=== PATIENT | male | born 1990 | race Caucasian/White ===

== ENCOUNTER 2016-08-02 22:48 | Emergency (ER) | payer SELFPAY ==
[2016-08-03 00:26] VITALS: BP 135/80
[2016-08-03] MEDS ORDERED: ASPIRIN 81 MG TABLET, CHEWABLE PO ONE (00:31)
[2016-08-03 01:50] LABS: ABSOLUTE BASOPHILS # (AUTO) 0.1 10^3/uL (0.0-0.2); ABSOLUTE EOSINOPHILS # (AUTO) 0.4 10^3/uL (0.0-0.6); ABSOLUTE NEUT (AUTO) 7.7 10^3/uL (1.7-8.2); EOSINOPHILS % (AUTO) 2.8 % (0-6); HEMATOCRIT 48.8 % (37.9-51.0); HEMOGLOBIN 16.7 g/dL (13.5-17.0); HGB HCT DIFFERENCE 1.3; LYMPHOCYTES % (AUTO) 30.5 % (13-45); MEAN CORPUSCULAR HEMOGLOBIN 29.8 pg (27.0-33.4); MEAN CORPUSCULAR HGB CONC 34.1 g/dL (32.0-36.0); MEAN CORPUSCULAR VOLUME 87 fl (80-97); MONOCYTES % (AUTO) 7.3 % (3-13); RED CELL DISTRIBUTION WIDTH 13.6 % (11.5-14.0); SEGMENTED NEUTROPHILS % (AUTO) 58.4 % (42-78); WHITE BLOOD COUNT 13.1 10^3/uL (4.0-10.5)
[2016-08-03 02:00] LABS: ALANINE AMINOTRANSFERASE 40 U/L (21-72); ALBUMIN 4.8 g/dL (3.5-5.0); ALKALINE PHOSPHATASE 71 U/L (38-126); ANION GAP 13 (5-19); ASPARTATE AMINO TRANSFERASE 26 U/L (17-59); BILIRUBIN,TOTAL 0.6 mg/dL (0.2-1.3); BLOOD UREA NITROGEN 16 mg/dL (7-20); CALCIUM 10.2 mg/dL (8.4-10.2); CARBON DIOXIDE 24 mmol/L (22-30); CHLORIDE 106 mmol/L (98-107); CREATINE KINASE 195 U/L (55-170); CREATININE RESULT 0.85 mg/dL (0.52-1.25); GLUCOSE 89 mg/dL (75-110); POTASSIUM 4.3 mmol/L (3.6-5.0); SODIUM 143.4 mmol/L (137-145); TOTAL PROTEIN 7.6 g/dL (6.3-8.2)
[2016-08-03 02:10] LABS: CREATINE KINASE MB 0.52 ng/mL (<4.55)
[2016-08-03 02:12] LABS: TROPONIN I < 0.012 ng/mL
--- NOTE | 2016-08-03 03:30 | ER Document Report ---
ED Cardiac - General Chief Complaint: Chest Pain Stated Complaint: CHEST PAIN Notes: The patient is a 26-year-old male who presents with 5 months of left-sided chest pain and left arm tingling that occurs intermittently throughout the day. He has not seen a doctor for this. Pain does not change with exertion. Denies shortness of breath, fevers, rash, back pain, leg swelling, cough or abdominal pain. TRAVEL OUTSIDE OF THE [place] IN LAST 30 DAYS: No - Related Data Allergies/Adverse Reactions: No Known Allergies Allergy (Verified 08/22/12 09:30) Past Medical History - General Information source: Patient - Social History Smoking Status: Current Every Day Smoker Frequency of alcohol use: None Drug Abuse: None Family History: Reviewed & Not Pertinent Pulmonary Medical History: Reports: Hx Pneumonia Neurological Medical History: Reports: Hx Seizures Renal/ Medical History: Reports: Hx Kidney Stones. Denies: Hx Peritoneal Dialysis Musculoskeltal Medical History: Reports Hx Musculoskeletal Trauma Psychiatric Medical History: Reports: Hx Attention Deficit Hyperactivity Disorder, Hx Bipolar Disorder Past Surgical History: Reports: Hx Orthopedic Surgery - LEFT KNEE - Immunizations Immunizations up to date: No Hx Diphtheria, Pertussis, Tetanus Vaccination: Yes Review of Systems - Review of Systems Notes: REVIEW OF SYSTEMS: CONSTITUTIONAL: -fevers, -chills EENT: -eye pain, -difficulty swallowing, -nasal congestion CARDIOVASCULAR: +chest pain, -syncope. RESPIRATORY: -cough, -SOB GASTROINTESTINAL: -abdominal pain, -nausea, -vomiting, -diarrhea GENITOURINARY: -dysuria, -hematuria MUSCULOSKELETAL: -back pain, -neck pain SKIN: -rash or skin lesions. HEMATOLOGIC: -easy bruising or bleeding. LYMPHATIC: -swollen, enlarged glands. NEUROLOGICAL: -altered mental status or loss of consciousness, -headache, - neurologic symptoms PSYCHIATRIC: -anxiety, -depression. ALL OTHER SYSTEMS REVIEWED AND NEGATIVE. Physical Exam - Vital signs Vitals: Temp Pulse Resp BP Pulse Ox 97.7 F 90 16 135/80 H 99 08/03/16 00:24 08/03/16 00:24 08/03/16 00:24 08/03/16 00:24 08/03/16 00:24 - Notes Notes: PHYSICAL EXAMINATION: GENERAL: Well-appearing, well-nourished and in no acute distress. HEAD: Atraumatic, normocephalic. EYES: Pupils equal round and reactive to light, extraocular movements intact, sclera anicteric, conjunctiva are normal. ENT: nares patent, oropharynx clear without exudates. Moist mucous membranes. NECK: Normal range of motion, supple without lymphadenopathy LUNGS: Breath sounds clear to auscultation bilaterally and equal. No wheezes rales or rhonchi. HEART: Regular rate and rhythm without murmurs ABDOMEN: Soft, nontender, normoactive bowel sounds. No guarding, no rebound. No masses appreciated. EXTREMITIES: Normal range of motion, no pitting or edema. No cyanosis. NEUROLOGICAL: Cranial nerves grossly intact. Normal speech, normal gait. Normal sensory, motor, and reflex exams. PSYCH: Normal mood, normal affect. SKIN: Warm, Dry, normal turgor, no rashes or lesions noted. Course - Re-evaluation Re-evalutation: Pt's HEART score is 1. PERC negative. Symptoms atypical for aortic dissection. Will discharge home with follow-up at primary care physician in [place]. Given strict return precautions and he understands. - Vital Signs Vital signs: Temp Pulse Resp BP Pulse Ox 97.7 F 90 16 135/80 H 99 08/03/16 00:24 08/03/16 00:24 08/03/16 00:24 08/03/16 00:24 08/03/16 00:24 - Laboratory Result Diagrams: 08/03/16 01:25 08/03/16 01:25 Laboratory results interpreted by me: 08/03/16 08/03/16 01:25 01:25 WBC 13.1 H RBC 5.60 H Creatine Kinase 195 H Discharge - Discharge Clinical Impression: Chest pain Qualifiers: Chest pain type: unspecified Qualified Code(s): R07.9 - Chest pain, unspecified Condition: Good Disposition: HOME, SELF-CARE Additional Instructions: CHEST PAIN OF UNCLEAR CAUSE: The exact cause of your chest pain isn't clear. Fortunately, there is no evidence of a dangerous medical condition. Further testing may be required to find the source of the pain. Most often, we find that this pain is coming from the chest wall -- the muscles or rib joints in the chest. But chest pain can come from the lung and lung lining, the esophagus, the heart valves or heart lining, and even the stomach or gallbladder. Rest. Eat lightly until the pain is gone. We may prescribe medicine for pain and inflammation. You should call the physician immediately if the pain radiates to the shoulder, jaw or arms; if you start to run a fever or develop a cough; or if you develop shortness of breath, or other new or alarming symptoms. NORMAL EXAM AND WORKUP: At this time, your examination and workup show no significant abnormality. No significant abnormal physical findings were noted. All laboratory, EKG, and imaging (x-ray, CT scans, ultrasound) studies that were ordered show no significant abnormality. Although your examination and all studies that were ordered showed no significant abnormal finding, there are no examinations and no studies that are 100% accurate. There is always the possibility that some abnormality could exist and not be detected with physical examination or within the limits and capabilities of laboratory and other studies. You should return or follow up as you were instructed on your visit today for further evaluation if your symptoms do not resolve. CHEST WALL PAIN: Your chest pain may be coming from the chest wall. This is often caused by straining the muscles or joints in the chest during physical activity, direct trauma, coughing, or vigorous vomiting. Persons with arthritis are especially prone to this type of pain, due to inflammation of the cartilage joints near the breast bone. Occasionally, no cause can be found. Rest from strenuous physical activity. This kind of chest pain is usually made worse by movement of the chest. Depending on the symptoms, we may prescribe medicine for pain, muscle relaxation, and antiinflammatory effects. If the pain is new, and seems to be due to muscle strain, cold packs can help. Otherwise, apply gentle warmth to the painful area for 15 minutes every hour or two. You should call contact the doctor immediately if things change. Further evaluation is needed if you develop a fever or cough, if the nature of the pain changes, or if you become short of breath. ANGINA EPISODE: Your physician has diagnosed the pain you experienced as an episode of angina. Angina occurs when a portion of the heart muscle temporarily lacks oxygen. It does not cause any permanent heart damage, but serves as a warning. Hospitalization is not necessary now. Evaluation of your cardiac condition , and medical therapy for angina will be necessary. It's important you be sure to keep all appointments and take medication exactly as prescribed. Angina is usually treated with a type of "nitrate" medication. This is available as ointment, pills, or sublingual (under the tongue) tablets. Depending on your clinical situation, other medications may be added to help control angina. These may include beta blockers or calcium blockers. If episodes of angina are occurring with increased frequency, or if chest pain lasts longer than 15 minutes or does not respond to nitroglycerin, you must seek emergency medical care immediately. ACID REFLUX DISEASE (GERD): Gastro-Esophageal Reflux Disease (GERD) is caused by stomach acid refluxing back up into the esophagus. The valve at the end of the esophagus may be weak. This is common in persons with a hiatal hernia. GERD symptoms can include indigestion, chest pain, heartburn, or food "sticking." Certain foods, alcohol, and aspirin can make GERD worse. Treatment depends on the severity. Usually, antacids or acid-suppressing medicines are used. When the esophagus is acutely inflamed, the physician will often prescribe membrane-protective drugs such as Carafate. Some patients benefit from medication such as Reglan that tightens the valve at the top of the stomach. Avoid those foods that bring on your symptoms. For many people, these foods are coffee, chocolate, onions, garlic, and carbonated drinks. Don't use alcohol, aspirin, caffeine, or tobacco. Don't eat late at night -- within 4 hours of bedtime. Don't over-eat. If necessary, elevate the head of your bed about 4 inches so that stomach acid will not roll up into your esophagus. Call the doctor if you develop severe chest pain, inability to swallow fluids, fever, or worsening symptoms. FOLLOW-UP CARE: If you have been referred to a physician for follow-up care, call the physician s office for an appointment as you were instructed or within the next two days. If you experience worsening or a significant change in your symptoms, notify the physician immediately or return to the Emergency Department at any time for re-evaluation.
--- NOTE | 2016-08-04 08:14 | EKG REPORT ---
SEVERITY:- NORMAL ECG - SINUS RHYTHM : Confirmed by: Rosana Jones MD 04-Aug-2016 08:13:00
== END 2016-08-03 03:52 | disposition home or self-care (01) ==
LOC: ER 22:48
DX: R07.9 Chest pain, unspecified (principal); R20.2 Paresthesia of skin; F17.200 Nicotine dependence, unspecified, uncomplicated
CPT/HCPCS: 36415; 71010; 80053; 82550; 82553; 84484; 85025; 93005; 93010; 99285

== ENCOUNTER 2016-09-17 22:15 | Emergency (ER) | payer SELFPAY ==
--- NOTE | 2016-09-17 23:43 | ER Document Report ---
HPI - HPI Patient complains to provider of: left knee pain Onset: Other - 2 months ago Onset/Duration: Persistent Quality of pain: Achy Severity: Severe Pain Level: 5 Context: Presents to the emergency department with complaints of left knee pain for the past 2 months. He reports he twisted it couple months ago. He reports history of meniscus tear in the same knee with [place] [address] mendosa. He reports the pain is so bad at times that makes him vomit. He also reports he's been to 6 different hospitals in 2 different states to evaluate the knee and nobody can tell him whats going on. Patient also reports that he has a learning disability and sometimes does not understand what people say. Associated Symptoms: None Exacerbated by: Walking Relieved by: Denies Similar symptoms previously: Yes Recently seen / treated by doctor: Yes - REPRODUCTIVE Reproductive: DENIES: : - DERM Skin Color: Normal Past Medical History - General Information source: Patient - Social History Smoking Status: Current Every Day Smoker Cigarette use (# per day): Yes Chew tobacco use (# tins/day): No Frequency of alcohol use: None Drug Abuse: None Family History: Reviewed & Not Pertinent Patient has suicidal ideation: No Patient has homicidal ideation: No Pulmonary Medical History: Reports: Hx Pneumonia Neurological Medical History: Reports: Hx Seizures Renal/ Medical History: Reports: Hx Kidney Stones. Denies: Hx Peritoneal Dialysis Musculoskeltal Medical History: Reports Hx Musculoskeletal Trauma Psychiatric Medical History: Reports: Hx Attention Deficit Hyperactivity Disorder, Hx Bipolar Disorder Past Surgical History: Reports: Hx Orthopedic Surgery - LEFT KNEE- 2007 - Immunizations Immunizations up to date: No Hx Diphtheria, Pertussis, Tetanus Vaccination: Yes Vertical Provider Document - CONSTITUTIONAL Agree With Documented VS: Yes Exam Limitations: No Limitations General Appearance: WD/WN, No Apparent Distress - INFECTION CONTROL TRAVEL OUTSIDE OF THE [place] IN LAST 30 DAYS: No - HEENT HEENT: Atraumatic, Normocephalic - NECK Neck: Normal Inspection, Supple. negative: Lymphadenopathy-Left, Lymphadenopathy-Right - RESPIRATORY Respiratory: Breath Sounds Normal, No Respiratory Distress O2 Sat by Pulse Oximetry: 98 - MUSCULOSKELETAL/EXTREMETIES Musculoskeletal/Extremeties: MAEW, FROM, Tender - no pain with palpation to left knee, no obvious deformity or swelling noted erythema and warmth. Patient has full range of motion flexes and extends knee without complaints of pain but reports pain when he walks. - NEURO Level of Consciousness: Awake, Alert, Appropriate Motor/Sensory: No Motor Deficit - DERM Integumentary: Warm, Dry Adult Front & Back Diagram: 1 - c/o pain Course - Vital Signs Vital signs: Temp Pulse Resp BP Pulse Ox 98 F 107 H 18 138/80 H 98 09/17/16 23:09 09/17/16 23:09 09/17/16 23:09 09/17/16 23:09 09/17/16 23:09 Procedures - Immobilization Left Knee Pre-Proc Neuro Vasc Exam: Normal Immobilizer type: Thony wrap Performed by: PCT Post-Proc Neuro Vasc Exam: Unchanged from pre-exam Discharge - Discharge Clinical Impression: Elevated blood pressure reading Left knee pain Qualifiers: Chronicity: chronic Qualified Code(s): M25.562 - Pain in left knee Condition: Stable Disposition: HOME, SELF-CARE Instructions: Suspected Internal Knee Injury ([facility]), Ice & Elevation ([facility]), Use of Wefm-Ski-Pdhjibf Ibuprofen ([facility]), Thony Wrap ([facility]) Additional Instructions: *You have been evaluated for left knee pain *Maintain the thony wrap for comfort *Rest/Ice/Elevate *Follow up with Dr. Mendosa, orthopedics, for evaluation-call for an appointment *Take ibuprofen as indicated for pain *Return to ED for worsening condition, changes, needs Monitor your blood pressure. Your blood pressure was elevated today. This may be because you were anxious, in pain or because you need medication. It is important to follow up with your primary care provider for full evaluation. Forms: Elevated Blood Pressure, Smoking Cessation Education
[2016-09-17 23:51] VITALS: BP 133/80
== END 2016-09-17 23:50 | disposition home or self-care (01) ==
LOC: ER 22:15
DX: R03.0 Elevated blood-pressure reading, without diagnosis of hypertension (principal); M25.562 Pain in left knee; F17.210 Nicotine dependence, cigarettes, uncomplicated
CPT/HCPCS: 99283

== ENCOUNTER 2016-09-28 20:12 | Emergency (ER) | payer SELFPAY ==
[2016-09-28 21:32] VITALS: BP 128/70
--- NOTE | 2016-09-29 07:37 | EKG REPORT ---
SEVERITY:- NORMAL ECG - SINUS RHYTHM : Confirmed by: Rosana Jones MD 29-Sep-2016 07:36:33
== END 2016-09-28 21:44 | disposition left against medical advice (07) ==
LOC: ER 20:12
DX: Z53.9 Procedure and treatment not carried out, unspecified reason (principal); R07.9 Chest pain, unspecified
CPT/HCPCS: 93005; 93010

== ENCOUNTER 2016-09-29 17:02 | Emergency (ER) | payer MEDICAID ==
--- NOTE | 2016-09-29 18:35 | ER Document Report ---
ED Medical Screen (RME) - General Chief Complaint: Chest Pain Stated Complaint: CHEST PAIN, FACE AND ARM NUMBNESS Notes: 26-year-old male patient comes emergency room complaining of chest pain for several days. The pain worse with movement. Goes into his left arm and his face. He came here last night and waited a while and left without being seen. He is seen here on 08/03/2016 complaining of left-sided chest pain going into left arm for 5 months. He states that was the same kind of pain then, it was way for about a month and then started coming back. I have greeted and performed a rapid initial assessment of this patient. A comprehensive ED assessment and evaluation of the patient, analysis of test results and completion of the medical decision making process will be conducted by additional ED providers. TRAVEL OUTSIDE OF THE [place] IN LAST 30 DAYS: No - Related Data Allergies/Adverse Reactions: No Known Allergies Allergy (Verified 09/29/16 18:30) Past Medical History Pulmonary Medical History: Reports: Hx Pneumonia Neurological Medical History: Reports: Hx Seizures Renal/ Medical History: Reports: Hx Kidney Stones. Denies: Hx Peritoneal Dialysis Musculoskeltal Medical History: Reports Hx Musculoskeletal Trauma Psychiatric Medical History: Reports: Hx Attention Deficit Hyperactivity Disorder, Hx Bipolar Disorder Past Surgical History: Reports: Hx Orthopedic Surgery - LEFT KNEE- 2007 - Immunizations Immunizations up to date: No Hx Diphtheria, Pertussis, Tetanus Vaccination: Yes Physical Exam - Vital signs Vitals: Temp Pulse Resp BP Pulse Ox 98.6 F 96 24 H 145/93 H 98 09/29/16 17:30 09/29/16 17:30 09/29/16 17:30 09/29/16 17:30 09/29/16 17:30 Course - Vital Signs Vital signs: Temp Pulse Resp BP Pulse Ox 98.6 F 96 24 H 145/93 H 98 09/29/16 17:30 09/29/16 17:30 09/29/16 17:30 09/29/16 17:30 09/29/16 17:30
[2016-09-29 19:36] LABS: ABSOLUTE BASOPHILS # (AUTO) 0.1 10^3/uL (0.0-0.2); ABSOLUTE EOSINOPHILS # (AUTO) 0.3 10^3/uL (0.0-0.6); ABSOLUTE LYMPHOCYTES (AUTO) 2.9 10^3/uL (0.5-4.7); ABSOLUTE MONOCYTES (AUTO) 0.8 10^3/uL (0.1-1.4); BASOPHILS % (AUTO) 0.5 % (0-2); EOSINOPHILS % (AUTO) 2.5 % (0-6); HEMATOCRIT 48.3 % (37.9-51.0); HEMOGLOBIN 16.3 g/dL (13.5-17.0); HGB HCT DIFFERENCE 0.6; LYMPHOCYTES % (AUTO) 26.5 % (13-45); MEAN CORPUSCULAR HEMOGLOBIN 29.6 pg (27.0-33.4); MEAN CORPUSCULAR HGB CONC 33.8 g/dL (32.0-36.0); MEAN CORPUSCULAR VOLUME 87 fl (80-97); MONOCYTES % (AUTO) 7.3 % (3-13); RED BLOOD COUNT 5.53 10^6/uL (4.35-5.55); RED CELL DISTRIBUTION WIDTH 13.5 % (11.5-14.0); SEGMENTED NEUTROPHILS % (AUTO) 63.2 % (42-78); WHITE BLOOD COUNT 11.1 10^3/uL (4.0-10.5)
[2016-09-29 19:48] LABS: ALANINE AMINOTRANSFERASE 39 U/L (21-72); ALBUMIN 4.6 g/dL (3.5-5.0); ALKALINE PHOSPHATASE 67 U/L (38-126); ANION GAP 15 (5-19); ASPARTATE AMINO TRANSFERASE 27 U/L (17-59); BILIRUBIN,DIRECT 0.3 mg/dL (0.0-0.4); BILIRUBIN,TOTAL 0.7 mg/dL (0.2-1.3); BLOOD UREA NITROGEN 12 mg/dL (7-20); CALCIUM 9.6 mg/dL (8.4-10.2); CARBON DIOXIDE 22 mmol/L (22-30); CHLORIDE 109 mmol/L (98-107); CREATINE KINASE 226 U/L (55-170); CREATININE RESULT 0.71 mg/dL (0.52-1.25); GLUCOSE 80 mg/dL (75-110); POTASSIUM 3.9 mmol/L (3.6-5.0); SODIUM 145.5 mmol/L (137-145); TOTAL PROTEIN 7.4 g/dL (6.3-8.2)
[2016-09-29 20:02] LABS: TROPONIN I < 0.012 ng/mL
--- NOTE | 2016-09-29 20:03 | EKG REPORT ---
SEVERITY:- NORMAL ECG - SINUS RHYTHM : Confirmed by: Rosana Jones MD 29-Sep-2016 20:02:23
[2016-09-29] MEDS ORDERED: IPRATROPIUM/ALBUTEROL 0.5-2.5 MG/3 ML AMPUL NEB ONE (22:05)
[2016-09-29] MEDS ORDERED: NORMAL SALINE 1000 ML 1,000 ML IV PRN (22:05)
[2016-09-29] MEDS ORDERED: ALBUTEROL SULFATE HFA (90 MCG/PUFF) 8 GM MDI (1 MDI/ER DISP) IH PRN (23:55)
--- NOTE | 2016-09-29 23:59 | ER Document Report ---
ED Respiratory Problem - General Chief Complaint: Chest Pain Stated Complaint: CHEST PAIN, FACE AND ARM NUMBNESS Time seen by provider: 23:54 Mode of Arrival: Ambulatory Information source: Patient Notes: This is a 26-year-old male smoker presented to the emergency room with chest tightness and wheezing. TRAVEL OUTSIDE OF THE [place] IN LAST 30 DAYS: No - HPI Patient complains to provider of: Short of breath Onset: Other - Patient states he's had these symptoms for the past 3 months Duration: Intermittent episodes Initiating Event: No: Allergy, Aspiration/Choking, Exertion, Exposure to chemicals, Exposure to dust, Exposure to fumes, Exposure to mold, Exposure to smoke, Out of meds, Sports/exercise, URI, Other Quality of pain: No pain Severity: None Pain Level: Denies Short of Breath: Mild Chest pain/discomfort: Center Cough: Nonproductive Sputum amount: None At home treatment: denies: Bronchodilators, CPAP, Diuretics, Inhaled steroids, Oral steroids, Oxygen, Singulair, Theophylline EMS treatments: No: Bronchodilators, CPAP, Diuretics, Epinephrine, Nitrates, Oxygen, Solumedrol Associated symptoms: Chest pain/discomfort, Short of breath. denies: Fever Similar symptoms previously: Yes Recently seen / treated by doctor: Yes - Related Data Allergies/Adverse Reactions: No Known Allergies Allergy (Verified 10/01/16 18:42) Past Medical History - General Information source: Patient - Social History Smoking Status: Current Every Day Smoker Cigarette use (# per day): Yes Chew tobacco use (# tins/day): No - 2 pack per day smoker Frequency of alcohol use: None Drug Abuse: None Lives with: Spouse/Significant other Family History: Reviewed & Not Pertinent Patient has suicidal ideation: No Patient has homicidal ideation: No Pulmonary Medical History: Reports: Hx Pneumonia Neurological Medical History: Reports: Hx Seizures Renal/ Medical History: Reports: Hx Kidney Stones. Denies: Hx Peritoneal Dialysis Musculoskeltal Medical History: Reports Hx Musculoskeletal Trauma Psychiatric Medical History: Reports: Hx Attention Deficit Hyperactivity Disorder, Hx Bipolar Disorder Past Surgical History: Reports: Hx Orthopedic Surgery - LEFT KNEE- 2007 - Immunizations Immunizations up to date: No Hx Diphtheria, Pertussis, Tetanus Vaccination: Yes Review of Systems - Review of Systems Constitutional: denies: Chills, Fever EENT: No symptoms reported Cardiovascular: No symptoms reported Respiratory: See HPI Gastrointestinal: No symptoms reported Genitourinary: No symptoms reported Male Genitourinary: No symptoms reported Musculoskeletal: No symptoms reported Skin: No symptoms reported Hematologic/Lymphatic: No symptoms reported Neurological/Psychological: No symptoms reported Physical Exam - Vital signs Vitals: Temp Pulse Resp BP Pulse Ox 98.6 F 96 24 H 145/93 H 98 09/29/16 17:30 09/29/16 17:30 09/29/16 17:30 09/29/16 17:30 09/29/16 17:30 Notes: Physical exam: GENERAL: 26-year-old man, alert and oriented 3, no acute distress HEAD: Atraumatic, normocephalic. EYES: Pupils equal round and reactive to light, extraocular movements intact, sclera anicteric, conjunctiva are normal. ENT: TMs normal, nares patent, oropharynx clear without exudates. Moist mucous membranes. NECK: Normal range of motion, supple without lymphadenopathy or JVD. LUNGS: Scant wheezing bilaterally, tight breath sounds. HEART: Regular rate and rhythm without murmurs, rubs or gallops. ABDOMEN: Soft, normoactive bowel sounds. No tenderness to palpation. No guarding, no rebound. No masses appreciated. EXTREMITIES: Normal range of motion, no pitting or edema. No clubbing or cyanosis. NEUROLOGICAL: Cranial nerves II through XII grossly intact. Normal speech, normal gait. PSYCH: Normal mood, normal affect. SKIN: Warm, Dry, normal turgor, no rashes or lesions noted. Course - Re-evaluation Re-evalutation: 09/29/16 23:56 Note: Patient does have a significant smoking history (2 packs a day) and I'm at a long discussion with him regarding the subsequent risk to lung cancer as well as COPD. He did have a trial neb in the emergency room and had much benefit from it. I think a lot of his chest tightness was from reactive airway disease. Additionally, he does have a lot of tenderness to the chest wall which suggests some evidence of inflammation. He does have a history of moving around and long car rides, so I did do a CT of his chest and it did not show any evidence of pulmonary emboli. The symptoms did not sound cardiac and his EKG is essentially unchanged from yesterday. 10/04/16 04:30 10/04/16 04:30 - Vital Signs Vital signs: Temp Pulse Resp BP Pulse Ox 97.4 F 73 16 138/79 H 98 09/30/16 00:16 09/30/16 00:16 09/30/16 00:16 09/30/16 00:16 09/30/16 00:16 - Laboratory Result Diagrams: 09/29/16 19:10 09/29/16 19:10 Laboratory results interpreted by me: 09/29/16 09/29/16 19:10 19:10 WBC 11.1 H Sodium 145.5 H Chloride 109 H Creatine Kinase 226 H - Diagnostic Test Radiology reviewed: Image reviewed, Reports reviewed - CT a of the chest showed no pulmonary emboli. - EKG Interpretation by Me Rate: Normal Rhythm: NSR - EKG shows normal sinus rhythm with a ventricular rate of 97, no acute ST-T wave changes. No significant change from EKG performed yesterday evening Discharge - Discharge Clinical Impression: chest wall pain, reactive airway disease Condition: Good Disposition: HOME, SELF-CARE Instructions: Bronchospasm ([facility]), Chest Wall Pain ([facility]) Additional Instructions: Recommendations: I would like you to follow-up with a primary care doctor: I left the number for the [place] [facility]. Additionally, another resources of the [facility] which is a free clinic. You will have a lot of the symptoms of sleep apnea and may require a sleep study which is an outpatient study ordered through a primary care physician. Take the inhaler as needed: 2 puffs every 6 hours As we discussed, I would like you to reduce your smoking intake with the goal of ultimately stopping smoking. This will increase your chances of cancer and emphysema. The fact that the nebulizer treatment made you feel a little bit better, suggest she may be starting to get some early COPD (which is emphysema).
[2016-09-30 00:18] VITALS: BP 138/79
== END 2016-09-30 00:16 | disposition home or self-care (01) ==
LOC: ER 17:02
DX: R07.89 Other chest pain (principal); J45.909 Unspecified asthma, uncomplicated; R06.02 Shortness of breath; F17.210 Nicotine dependence, cigarettes, uncomplicated; Z87.01 Personal history of pneumonia (recurrent)
CPT/HCPCS: 93005; 94640; 99285; 96360; 36415; 82553; 82550; 85025; 80053; 84484; 71020; 71275; 93010; J7030; J3490; J7620

== ENCOUNTER 2016-10-01 18:36 | Emergency (ER) | payer MEDICAID ==
--- NOTE | 2016-10-01 19:04 | ER Document Report ---
ED Medical Screen (RME) - General Chief Complaint: Shortness Of Breath Stated Complaint: WEAKNESS Notes: Patient is complaining of chest hurting. He was just here on the of this month, 2 days ago, and had a complete workup for chest pain, including a CTA of the chest and abdomen, which were all normal. He was discharged from here with a pro-air inhaler. Says is not used that inhaler since this morning. Has some cough. Patient is a 2 pack per day cigarette smoker! Not running any fever. Seems anxious and breathing rather fast and heavily. Patient does have a history of seizures for which she takes Depakote. TRAVEL OUTSIDE OF THE [place] IN LAST 30 DAYS: No - Related Data Allergies/Adverse Reactions: No Known Allergies Allergy (Verified 10/01/16 18:42) Past Medical History Pulmonary Medical History: Reports: Hx Pneumonia Neurological Medical History: Reports: Hx Seizures Renal/ Medical History: Reports: Hx Kidney Stones. Denies: Hx Peritoneal Dialysis Musculoskeltal Medical History: Reports Hx Musculoskeletal Trauma Psychiatric Medical History: Reports: Hx Attention Deficit Hyperactivity Disorder, Hx Bipolar Disorder Past Surgical History: Reports: Hx Orthopedic Surgery - LEFT KNEE- 2007 - Immunizations Immunizations up to date: No Hx Diphtheria, Pertussis, Tetanus Vaccination: Yes Physical Exam - Vital signs Vitals: Temp Pulse Resp BP Pulse Ox 97.3 F 124 H 24 H 155/77 H 100 10/01/16 18:44 10/01/16 18:44 10/01/16 18:44 10/01/16 18:44 10/01/16 18:44 Course - Vital Signs Vital signs: Temp Pulse Resp BP Pulse Ox 97.3 F 124 H 24 H 155/77 H 100 10/01/16 18:44 10/01/16 18:44 10/01/16 18:44 10/01/16 18:44 10/01/16 18:44
[2016-10-01 19:27] LABS: ABSOLUTE BASOPHILS # (AUTO) 0.1 10^3/uL (0.0-0.2); ABSOLUTE EOSINOPHILS # (AUTO) 0.3 10^3/uL (0.0-0.6); ABSOLUTE LYMPHOCYTES (AUTO) 2.7 10^3/uL (0.5-4.7); ABSOLUTE MONOCYTES (AUTO) 0.7 10^3/uL (0.1-1.4); ABSOLUTE NEUT (AUTO) 7.1 10^3/uL (1.7-8.2); BASOPHILS % (AUTO) 0.7 % (0-2); EOSINOPHILS % (AUTO) 2.9 % (0-6); HEMOGLOBIN 16.6 g/dL (13.5-17.0); HGB HCT DIFFERENCE 0.8; LYMPHOCYTES % (AUTO) 24.7 % (13-45); MEAN CORPUSCULAR HEMOGLOBIN 29.8 pg (27.0-33.4); MEAN CORPUSCULAR HGB CONC 33.8 g/dL (32.0-36.0); MEAN CORPUSCULAR VOLUME 88 fl (80-97); MONOCYTES % (AUTO) 6.5 % (3-13); RED BLOOD COUNT 5.57 10^6/uL (4.35-5.55); SEGMENTED NEUTROPHILS % (AUTO) 65.2 % (42-78); WHITE BLOOD COUNT 10.9 10^3/uL (4.0-10.5)
[2016-10-01 19:32] LABS: APPEARANCE,URINE CLEAR; BILIRUBIN,URINE NEGATIVE (NEGATIVE); GLUCOSE, URINE NEGATIVE (NEGATIVE); KETONES,URINE NEGATIVE (NEGATIVE); LEUKOCYTE ESTERASE,URINE NEGATIVE (NEGATIVE); NITRITE,URINE NEGATIVE (NEGATIVE); PROTEIN,URINE NEGATIVE (NEGATIVE); URINE SPECIFIC GRAVITY 1.025
[2016-10-01 19:44] LABS: ALANINE AMINOTRANSFERASE 44 U/L (21-72); ALBUMIN 4.7 g/dL (3.5-5.0); ALKALINE PHOSPHATASE 67 U/L (38-126); ANION GAP 18 (5-19); ASPARTATE AMINO TRANSFERASE 34 U/L (17-59); BILIRUBIN,DIRECT 0.2 mg/dL (0.0-0.4); BILIRUBIN,TOTAL 0.5 mg/dL (0.2-1.3); BLOOD UREA NITROGEN 11 mg/dL (7-20); CALCIUM 9.3 mg/dL (8.4-10.2); CARBON DIOXIDE 20 mmol/L (22-30); CHLORIDE 108 mmol/L (98-107); CREATINE KINASE 205 U/L (55-170); CREATININE RESULT 0.79 mg/dL (0.52-1.25); GLUCOSE 144 mg/dL (75-110); POTASSIUM 3.7 mmol/L (3.6-5.0); SODIUM 145.6 mmol/L (137-145); TOTAL PROTEIN 7.3 g/dL (6.3-8.2)
[2016-10-01 19:52] LABS: CREATINE KINASE MB 0.63 ng/mL (<4.55)
[2016-10-01 19:53] LABS: TROPONIN I < 0.012 ng/mL
[2016-10-01] MEDS ORDERED: NORMAL SALINE 1000 ML 1,000 ML IV ONE (20:29)
--- NOTE | 2016-10-01 20:33 | ER Document Report ---
ED Respiratory Problem - General Chief Complaint: Shortness Of Breath Stated Complaint: WEAKNESS Mode of Arrival: Ambulatory Information source: Patient Notes: Patient presents complaining of chest pain and shortness of breath for the past 2 days. Patient states that occasionally the chest pain on radiate to his neck area. Patient reports worsening shortness of breath with exertion. Patient complains of cough for the past 3 or 4 months. Patient denies any fever. TRAVEL OUTSIDE OF THE [place] IN LAST 30 DAYS: No - HPI Patient complains to provider of: Chest pain, Cough, Short of breath Onset: Other - 2 days Quality of pain: Pressure Pain Level: 3 Context: Smoker. denies: Hx asthma, Recent immobilization, Recent surgery Short of Breath: Mild Chest pain/discomfort: Tightness Associated symptoms: Chest pain/discomfort, Cough, Short of breath. denies: Fever, Headache - Related Data Allergies/Adverse Reactions: No Known Allergies Allergy (Verified 10/01/16 18:42) Past Medical History - General Information source: Patient - Social History Smoking Status: Current Every Day Smoker Frequency of alcohol use: Occasional Drug Abuse: None Occupation: none Lives with: Spouse/Significant other Family History: Reviewed & Not Pertinent Patient has suicidal ideation: No Patient has homicidal ideation: No Pulmonary Medical History: Reports: Hx Pneumonia Neurological Medical History: Reports: Hx Seizures Renal/ Medical History: Reports: Hx Kidney Stones. Denies: Hx Peritoneal Dialysis Musculoskeltal Medical History: Reports Hx Musculoskeletal Trauma Psychiatric Medical History: Reports: Hx Attention Deficit Hyperactivity Disorder, Hx Bipolar Disorder Past Surgical History: Reports: Hx Orthopedic Surgery - LEFT KNEE- 2008 - Immunizations Immunizations up to date: No Hx Diphtheria, Pertussis, Tetanus Vaccination: Yes Review of Systems - Review of Systems Constitutional: No symptoms reported. denies: Fever, Recent illness EENT: No symptoms reported Cardiovascular: Chest pain Respiratory: Cough, Short of breath Gastrointestinal: No symptoms reported. denies: Abdominal pain, Nausea, Vomiting Genitourinary: No symptoms reported. denies: Dysuria Male Genitourinary: No symptoms reported Musculoskeletal: No symptoms reported Skin: No symptoms reported Hematologic/Lymphatic: No symptoms reported Neurological/Psychological: No symptoms reported Physical Exam - Vital signs Vitals: Temp Pulse Resp BP Pulse Ox 97.3 F 124 H 24 H 155/77 H 100 10/01/16 18:44 10/01/16 18:44 10/01/16 18:44 10/01/16 18:44 10/01/16 18:44 - General General appearance: Appears well, Alert In distress: None - HEENT Head: Normocephalic, Atraumatic Eyes: Normal Conjunctiva: Normal Eyelashes: Normal Pupils: PERRL Ears: Normal External canal: Normal Nasal: Normal Mouth/Lips: Normal Mucous membranes: Normal Pharynx: Normal Neck: Normal, Supple. No: Lymphadenopathy - Respiratory Respiratory status: No respiratory distress Chest status: Tender, Pain with cough Breath sounds: Normal Chest palpation: Tender - Cardiovascular Rhythm: Tachycardia Heart sounds: S1 appreciated, S2 appreciated Murmur: No - Abdominal Inspection: Obese Distension: No distension Bowel sounds: Normal Tenderness: Nontender Organomegaly: No organomegaly - Back Back: Normal, Nontender. No: CVA tenderness - Extremities General upper extremity: Normal inspection, Normal strength General lower extremity: Normal inspection, Normal strength - Neurological Neuro grossly intact: Yes Cognition: Normal [place] Coma Scale Eye Opening: Spontaneous [place] Coma Scale Verbal: Oriented Cole Coma Scale Motor: Obeys Commands Cole Coma Scale Total: 15 - Psychological Associated symptoms: Normal affect, Normal mood - Skin Skin Temperature: Warm Skin Moisture: Dry Skin Color: Normal Course - Re-evaluation Re-evalutation: 10/01/16 22:12 Patient's tachycardia has resolved. Patient's respirations even, unlabored. Discuss results of patient's diagnostic test results with patient. Patient advised that he will need to follow-up with his primary doctor as well as director of curriculum for recheck. Consulted with Dr. Lowry regarding patient's presentation and diagnostic evaluation, ekg reviewed, agrees with plan for discharge. The patient has atypical chest pain as the patient's chest pain is not suggestive of pulmonary embolus, cardiac ischemia, aortic dissection, or other serious etiology. Given the extremely low risk of these diagnoses for the test in evaluation for these possibilities does not appear to be indicated at this time. Patient has been instructed to return if the symptoms worsen or change in any way. Heart score 1. - Vital Signs Vital signs: Temp Pulse Resp BP Pulse Ox 97.6 F 86 12 131/64 H 96 10/01/16 21:45 10/01/16 21:45 10/01/16 21:45 10/01/16 21:45 10/01/16 21:45 - Laboratory Result Diagrams: 10/01/16 19:05 10/01/16 19:05 Laboratory results interpreted by me: 10/01/16 10/01/16 10/01/16 19:05 19:05 19:05 WBC 10.9 H RBC 5.57 H Sodium 145.6 H Chloride 108 H Carbon Dioxide 20 L Glucose 144 H Creatine Kinase 205 H Urine Urobilinogen 2.0 H 10/01/16 22:13 Labs- Entire Visit 10/01/16 10/01/16 10/01/16 19:05 19:05 19:05 WBC 10.9 H RBC 5.57 H Hgb 16.6 Hct 49.0 MCV 88 MCH 29.8 MCHC 33.8 RDW 14.0 Plt Count 200 Seg Neutrophils % 65.2 Lymphocytes % 24.7 Monocytes % 6.5 Eosinophils % 2.9 Basophils % 0.7 Absolute Neutrophils 7.1 Absolute Lymphocytes 2.7 Absolute Monocytes 0.7 Absolute Eosinophils 0.3 Absolute Basophils 0.1 Sodium 145.6 H Potassium 3.7 Chloride 108 H Carbon Dioxide 20 L Anion Gap 18 BUN 11 Creatinine 0.79 Est GFR ( Amer) > 60 Est GFR (Non-Af Amer) > 60 Glucose 144 H Calcium 9.3 Total Bilirubin 0.5 Direct Bilirubin 0.2 Indirect Bilirubin Not Reportable Neonat Total Bilirubin Not Reportable AST 34 ALT 44 Alkaline Phosphatase 67 Creatine Kinase 205 H CK-MB (CK-2) 0.63 Troponin I < 0.012 Total Protein 7.3 Albumin 4.7 TSH Urine Color Urine Appearance Urine pH Ur Specific Adrian Urine Protein Urine Glucose (UA) Urine Ketones Urine Blood Urine Nitrite Urine Bilirubin Urine Urobilinogen Ur Leukocyte Esterase Urine WBC (Auto) Urine RBC (Auto) Squamous Epi Cells Auto Urine Mucus (Auto) Urine Ascorbic Acid Urine Opiates Screen Urine Methadone Screen Ur Barbiturates Screen Ur Phencyclidine Scrn Ur Amphetamines Screen U Benzodiazepines Scrn Urine Cocaine Screen U Marijuana (THC) Screen 10/01/16 10/01/16 10/01/16 19:05 19:05 19:05 WBC RBC Hgb Hct MCV MCH MCHC RDW Plt Count Seg Neutrophils % Lymphocytes % Monocytes % Eosinophils % Basophils % Absolute Neutrophils Absolute Lymphocytes Absolute Monocytes Absolute Eosinophils Absolute Basophils Sodium Potassium Chloride Carbon Dioxide Anion Gap BUN Creatinine Est GFR ( Amer) Est GFR (Non-Af Amer) Glucose Calcium Total Bilirubin Direct Bilirubin Indirect Bilirubin Neonat Total Bilirubin AST ALT Alkaline Phosphatase Creatine Kinase CK-MB (CK-2) Troponin I Total Protein Albumin TSH 1.40 Urine Color YELLOW Urine Appearance CLEAR Urine pH 7.0 Ur Specific Adrian 1.025 Urine Protein NEGATIVE Urine Glucose (UA) NEGATIVE Urine Ketones NEGATIVE Urine Blood NEGATIVE Urine Nitrite NEGATIVE Urine Bilirubin NEGATIVE Urine Urobilinogen 2.0 H Ur Leukocyte Esterase NEGATIVE Urine WBC (Auto) 1 Urine RBC (Auto) 7 Squamous Epi Cells Auto <1 Urine Mucus (Auto) MOD Urine Ascorbic Acid NEGATIVE Urine Opiates Screen NEGATIVE Urine Methadone Screen NEGATIVE Ur Barbiturates Screen NEGATIVE Ur Phencyclidine Scrn NEGATIVE Ur Amphetamines Screen NEGATIVE U Benzodiazepines Scrn NEGATIVE Urine Cocaine Screen NEGATIVE U Marijuana (THC) Screen NEGATIVE Reviewed patient's laboratory test results from ER visit 2 days ago 10/02/16 06:49 - Diagnostic Test Radiology reviewed: Reports reviewed - Reviewed CTA and chest x-ray reports from 2 days ago Discharge - Discharge Clinical Impression: Tobacco use disorder, Bronchitis Chest pain Qualifiers: Chest pain type: unspecified Qualified Code(s): R07.9 - Chest pain, unspecified Dyspnea Qualifiers: Dyspnea type: unspecified Qualified Code(s): R06.00 - Dyspnea, unspecified Condition: Stable Disposition: HOME, SELF-CARE Instructions: Chest Pain of Unclear Cause ([facility]), Bronchitis ([facility]), Inhaled Bronchodilators ([facility]) Additional Instructions: Return immediately for any new or worsening symptoms Followup with your primary care provider, call tomorrow to make a followup appointment Use your inhaler that she were given previous ER visit as directed Follow-up with a director of curriculum for further evaluation, call Monday for an appointment Stay well hydrated Prescriptions: Naproxen [Naprosyn 250 Nmg Tablet] 1 tab PO BID #14 tablet Referrals: [facility] [Provider Group] - 10/03/16 THIAGO KAPLAN MD [ACTIVE STAFF] - 10/03/16
[2016-10-01 20:55] LABS: URINE BARBITURATES SCREEN NEGATIVE; URINE METHADONE SCREEN NEGATIVE; URINE OPIATES LOW NEGATIVE; URINE PHENCYCLIDINE SCREEN NEGATIVE
[2016-10-01 21:45] VITALS: BP 131/64
--- NOTE | 2016-10-02 16:53 | EKG REPORT ---
SEVERITY:- OTHERWISE NORMAL ECG - SINUS TACHYCARDIA : Confirmed by: Rosana Jones MD 02-Oct-2016 16:52:16
== END 2016-10-01 22:10 | disposition home or self-care (01) ==
LOC: ER 18:36
DX: J40 Bronchitis, not specified as acute or chronic (principal); R07.9 Chest pain, unspecified; R06.00 Dyspnea, unspecified; R06.02 Shortness of breath; R53.1 Weakness; R05 Cough; F17.200 Nicotine dependence, unspecified, uncomplicated
CPT/HCPCS: 93005; 99285; 36415; 82553; 82550; 84443; 85025; 80053; 81001; 84484; 80307; 71020; 93010; J7030

== ENCOUNTER 2016-10-18 16:34 | Emergency (ER) | payer MEDICAID ==
--- NOTE | 2016-10-18 17:13 | ER Document Report ---
HPI - HPI Patient complains to provider of: toothache Onset: Yesterday Onset/Duration: Sudden Quality of pain: Throbbing Severity: Severe Pain Level: 5 Context: Patient states he had his teeth cleaned last week and has been having pain to the left upper tooth since. States he has an appointment with dentist Monday and is supposed to have tooth pulled. Associated Symptoms: None Exacerbated by: Denies Relieved by: Denies Similar symptoms previously: Yes Recently seen / treated by doctor: Yes - ROS ROS below otherwise negative: Yes Systems Reviewed and Negative: Yes All other systems reviewed and negative - CONSTITUTIONAL Constitutional: DENIES: Fever - EENT EENT: DENIES: Congestion - NEURO Neurology: DENIES: Headache - CARDIOVASCULAR Cardiovascular: DENIES: Chest pain - RESPIRATORY Respiratory: DENIES: Trouble Breathing - GASTROINTESTINAL Gastrointestinal: DENIES: Abdominal Pain - URINARY Urinary: DENIES: Dysuria - MUSCULOSKELETAL Musculoskeletal: DENIES: Extremity pain - DERM Skin Color: Normal Skin Problems: None Past Medical History - General Information source: Patient - Social History Smoking Status: Current Every Day Smoker Cigarette use (# per day): Yes Frequency of alcohol use: Occasional Drug Abuse: None Lives with: Family Family History: Reviewed & Not Pertinent Patient has suicidal ideation: No Patient has homicidal ideation: No Pulmonary Medical History: Reports: Hx Pneumonia Neurological Medical History: Reports: Hx Seizures Renal/ Medical History: Reports: Hx Kidney Stones Musculoskeltal Medical History: Reports Hx Musculoskeletal Trauma Psychiatric Medical History: Reports: Hx Attention Deficit Hyperactivity Disorder, Hx Bipolar Disorder Past Surgical History: Reports: Hx Orthopedic Surgery - LEFT KNEE- 2008 - Immunizations Immunizations up to date: No Hx Diphtheria, Pertussis, Tetanus Vaccination: Yes Vertical Provider Document - CONSTITUTIONAL Agree With Documented VS: Yes Exam Limitations: No Limitations General Appearance: WD/WN, No Apparent Distress - INFECTION CONTROL TRAVEL OUTSIDE OF THE [place] IN LAST 30 DAYS: No - HEENT HEENT: Atraumatic, Normal ENT Exam, Normocephalic Mouth Diagram: 1 - cavity - NECK Neck: Normal Inspection, Supple - RESPIRATORY Respiratory: Breath Sounds Normal, No Respiratory Distress O2 Sat by Pulse Oximetry: 98 - CARDIOVASCULAR Cardiovascular: Regular Rate, Regular Rhythm - MUSCULOSKELETAL/EXTREMETIES Musculoskeletal/Extremeties: MAEW, FROM - NEURO Level of Consciousness: Awake, Alert, Appropriate - DERM Integumentary: Warm, No Rash Course - Vital Signs Vital signs: Temp Pulse Resp BP Pulse Ox 99 F 94 16 135/86 H 98 10/18/16 16:40 10/18/16 16:40 10/18/16 16:40 10/18/16 16:40 10/18/16 16:40 Discharge - Discharge Clinical Impression: Pain, dental Condition: Good Disposition: HOME, SELF-CARE Instructions: Toothache ([facility]), Penicillin V K ([facility]) Additional Instructions: Meds as prescribed Follow up with your dentist Monday as scheduled, call for earlier appointment. Return as needed Prescriptions: Ibuprofen 800 mg PO TID PRN #20 tablet PRN Reason: Penicillin V Potassium [Penicillin Vk 250 mg Tablet] 250 mg PO Q6 #28 tablet Tramadol HCl 50 mg PO ASDIR PRN #15 tablet PRN Reason:
[2016-10-18 17:23] VITALS: BP 135/68
== END 2016-10-18 17:31 | disposition home or self-care (01) ==
LOC: ER 16:34
DX: K08.9 Disorder of teeth and supporting structures, unspecified (principal); F17.210 Nicotine dependence, cigarettes, uncomplicated
CPT/HCPCS: 99282

== ENCOUNTER 2016-12-02 13:22 | Emergency (ER) | payer MEDICAID ==
[2016-12-02 13:30] VITALS: BP 131/80
--- NOTE | 2016-12-02 14:02 | ER Document Report ---
ED Medical Screen (RME) - General Chief Complaint: Abdominal Pain Stated Complaint: ABDOMINAL PAIN,SPITTING UP BLOOD,SYNCOPE Time Seen by Provider: 12/02/16 13:51 Notes: Patient is a 26 year old male presenting to the ED for knee pain, cough, and weakness. Possible surgeon consult for surgery through [facility]. Patient is having increased pain and difficulty walking on his left knee. Patient also complains of a cough x6 months with spitting up blood. Patient also has decreased energy and weakness. Patient has "passed out" several times recently. Patient also has cramps under his rib cages; patient has not been drinking water. Patient also states he is having trouble with his bowel movements. Patient is constipated and cannot go. Patient states his normal BM is every 2-3 weeks. Patient ksjss 4 ulcers. 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 Patient denies any recent travel out of the country. Patient does not have a history of tuberculosis. Patient smokes and drinks EtOH. Meninscal repair [place] 2007 Dr. Maximo wise seizures last seizure was 1 year ago sleep apnea sleep study done PCP is [facility]. TRAVEL OUTSIDE OF THE [place] IN LAST 30 DAYS: No - Related Data Allergies/Adverse Reactions: No Known Allergies Allergy (Verified 12/02/16 13:30) Past Medical History Pulmonary Medical History: Reports: Hx Pneumonia Neurological Medical History: Reports: Hx Seizures Renal/ Medical History: Reports: Hx Kidney Stones. Denies: Hx Peritoneal Dialysis Musculoskeltal Medical History: Reports Hx Musculoskeletal Trauma Psychiatric Medical History: Reports: Hx Attention Deficit Hyperactivity Disorder, Hx Bipolar Disorder Past Surgical History: Reports: Hx Orthopedic Surgery - LEFT KNEE- 2007 - Immunizations Immunizations up to date: No Hx Diphtheria, Pertussis, Tetanus Vaccination: Yes Physical Exam - Vital signs Vitals: Temp Pulse Resp BP Pulse Ox 98.4 F 89 18 131/80 H 99 12/02/16 13:29 12/02/16 13:29 12/02/16 13:29 12/02/16 13:29 12/02/16 13:29 Course - Vital Signs Vital signs: Temp Pulse Resp BP Pulse Ox 98.4 F 89 18 131/80 H 99 12/02/16 13:29 12/02/16 13:29 12/02/16 13:29 12/02/16 13:29 12/02/16 13:29
--- NOTE | 2016-12-02 14:04 | ER Document Report ---
ED General - General Mode of Arrival: Wheelchair Information source: Patient TRAVEL OUTSIDE OF THE [place] IN LAST 30 DAYS: No <AIYANA CASILLAS - Last Filed: 12/02/16 16:48> <JAYLEN ALVAREZ - Last Filed: 12/03/16 14:49> - General Chief Complaint: Abdominal Pain Stated Complaint: ABDOMINAL PAIN,SPITTING UP BLOOD,SYNCOPE Time Seen by Provider: 12/02/16 13:51 Notes: Patient is a 26 year old male presenting to the ED for knee pain, cough, and weakness. Possible surgeon consult for surgery through [facility]. Patient is having increased pain and difficulty walking on his left knee. Patient also complains of a cough x6 months with spitting up blood. Patient also has decreased energy and weakness. Patient has "passed out" several times recently. Patient also has cramps under his rib cages; patient has not been drinking water. Patient also states he is having trouble with his bowel movements. Patient is constipated and cannot go. Patient states his normal BM is every 2-3 weeks. Patient ksjss 4 ulcers. 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 Patient denies any recent travel out of the country. Patient does not have a history of tuberculosis. Patient smokes and drinks EtOH. PCP is [facility]. (AIYANA CASILLAS) - Related Data Allergies/Adverse Reactions: No Known Allergies Allergy (Verified 12/02/16 13:30) Past Medical History - General Information source: Patient - Social History Smoking Status: Current Every Day Smoker Chew tobacco use (# tins/day): No Frequency of alcohol use: None Drug Abuse: None Family History: None Patient has suicidal ideation: No Patient has homicidal ideation: No Pulmonary Medical History: Reports: Hx Pneumonia Neurological Medical History: Reports: Hx Seizures Renal/ Medical History: Reports: Hx Kidney Stones Musculoskeltal Medical History: Reports Hx Musculoskeletal Trauma Psychiatric Medical History: Reports: Hx Attention Deficit Hyperactivity Disorder, Hx Bipolar Disorder Past Surgical History: Reports: Hx Orthopedic Surgery - Meninscal repair in 2007 Dr. Marsh - Immunizations Immunizations up to date: No Hx Diphtheria, Pertussis, Tetanus Vaccination: Yes <AIYANA CASILLAS - Last Filed: 12/02/16 16:48> Review of Systems - Review of Systems Constitutional: No symptoms reported EENT: No symptoms reported Cardiovascular: No symptoms reported Respiratory: See HPI, Cough Gastrointestinal: See HPI Genitourinary: No symptoms reported Male Genitourinary: No symptoms reported Musculoskeletal: See HPI Skin: No symptoms reported Hematologic/Lymphatic: No symptoms reported Neurological/Psychological: No symptoms reported -: Yes All other systems reviewed and negative <AIYANA CASILLAS - Last Filed: 12/02/16 16:48> Physical Exam - Vital signs Interpretation: Normal - General General appearance: Appears well, Alert In distress: Mild - HEENT Head: Normocephalic, Atraumatic Eyes: Normal Pupils: PERRL - Respiratory Respiratory status: No respiratory distress Chest status: Nontender Breath sounds: Normal Chest palpation: Normal - Cardiovascular Rhythm: Regular Heart sounds: Normal auscultation Murmur: No - Abdominal Inspection: Normal Distension: No distension Bowel sounds: Normal Tenderness: Nontender Organomegaly: No organomegaly - Back Back: Normal, Nontender - Extremities General upper extremity: Normal inspection, Nontender, Normal ROM General lower extremity: Normal inspection, Normal ROM - Neurological Neuro grossly intact: Yes Cognition: Normal Orientation: AAOx4 [place] Coma Scale Eye Opening: Spontaneous Cole Coma Scale Verbal: Oriented [place] Coma Scale Motor: Obeys Commands [place] Coma Scale Total: 15 Speech: Normal Sensory: Normal - Psychological Associated symptoms: Normal affect, Normal mood - Skin Skin Temperature: Warm Skin Moisture: Dry Skin Color: Normal <AIYANA CASILLAS - Last Filed: 12/02/16 16:48> Course - Laboratory Result Diagrams: 12/02/16 14:25 12/02/16 14:25 <AIYANA CASILLAS - Last Filed: 12/02/16 16:48> - Laboratory Result Diagrams: 12/02/16 14:25 12/02/16 14:25 <JAYLEN ALVAREZ - Last Filed: 12/03/16 14:49> - Re-evaluation Re-evalutation: 12/02/16 15:33 Patient presents emergency room with a multitude of complaints and says that [facility] not taking care of him. He has chronic left knee pain history of meniscal tear but says he can get in to Dr. Marsh. He has had a six -month history of cough which he occasionally spits up blood. Chest x-ray is negative has a history of seizures no seizures for urine Depakote. Says he has a history of sleep apnea spell skin on sleep apnea machine is generally weak on examination well-appearing nontoxic no acute distress afebrile normotensive not tachycardic and O2 sat 99% on room air. No acute findings on physical examination long chest abdomen back or extremities. Chest x-ray negative for acute pathology labs stable will DC follow-up [facility] in 3-4 days and discussed reasons for ED return sooner (JAYLEN ALVAREZ) - Vital Signs Vital signs: Temp Pulse Resp BP Pulse Ox 98.4 F 89 18 131/80 H 99 12/02/16 13:29 12/02/16 13:29 12/02/16 13:29 12/02/16 13:29 12/02/16 13:29 - Laboratory Laboratory results interpreted by me: 12/02/16 12/02/16 14:25 14:25 WBC 11.3 H RBC 5.94 H Hgb 17.6 H Hct 52.3 H Carbon Dioxide 21 L Discharge <AIYANA CASILLAS - Last Filed: 12/02/16 16:48> <JAYLEN ALVAREZ - Last Filed: 12/03/16 14:49> - Discharge Clinical Impression: Acute bronchitis, Weakness Knee pain, chronic Qualifiers: Laterality: left Qualified Code(s): M25.562 - Pain in left knee Condition: Stable Disposition: HOME, SELF-CARE Additional Instructions: Bronchitis You have acute bronchitis. This disease is an infection or inflammation of the air passageways in your lungs. Symptoms usually include cough, low grade fever, shortness of breath, and wheezing. The cough usually persists for a couple of weeks. Most cases of bronchitis get better without antibiotics. We prescribe antibiotics when we believe bacteria are damaging your airways, or if there's high risk the bronchitis will worsen into pneumonia. Increase your fluid intake. A cool mist humidifier may make your lungs more comfortable. An expectorant (cough medicine that loosens phlegm) can help. If you smoke, STOP!!! Recovery from bronchitis can be somewhat slow, but you should see improvement within a day or two. Repeated episodes of bronchitis may result in lung damage -- for example, chronic bronchitis, recurrent pneumonias, or emphysema. Call the doctor if you develop increasing fever, shortness of breath, chest pain, bloody sputum, or otherwise worsen. If you have not improved at all after several days, contact the physician. Referrals: [facility] [Provider Group] (For an appointment to be seen in follow-up in 3-4 days return for increasing worsening or new symptoms) Scribe Attestation: 12/02/16 15:33 I personally performed the services described in the documentation reviewed the documentation recorded by my scribe in my presence and it accurately and completely records my words and actions (JAYLEN ALVAREZ) Scribe Documentation - Scribe Written by Scribe:: David Rosado 12/02/16 17:40 acting as scribe for :: ANTONIO <AIYANA CASILLAS - Last Filed: 12/02/16 16:48>
[2016-12-02 14:45] LABS: ABSOLUTE BASOPHILS # (AUTO) 0.1 10^3/uL (0.0-0.2); ABSOLUTE EOSINOPHILS # (AUTO) 0.2 10^3/uL (0.0-0.6); ABSOLUTE LYMPHOCYTES (AUTO) 2.6 10^3/uL (0.5-4.7); ABSOLUTE NEUT (AUTO) 7.4 10^3/uL (1.7-8.2); BASOPHILS % (AUTO) 0.7 % (0-2); EOSINOPHILS % (AUTO) 1.9 % (0-6); HEMATOCRIT 52.3 % (37.9-51.0); HEMOGLOBIN 17.6 g/dL (13.5-17.0); HGB HCT DIFFERENCE 0.5; LYMPHOCYTES % (AUTO) 23.3 % (13-45); MEAN CORPUSCULAR HEMOGLOBIN 29.7 pg (27.0-33.4); MEAN CORPUSCULAR HGB CONC 33.7 g/dL (32.0-36.0); MEAN CORPUSCULAR VOLUME 88 fl (80-97); MONOCYTES % (AUTO) 8.6 % (3-13); RED BLOOD COUNT 5.94 10^6/uL (4.35-5.55); RED CELL DISTRIBUTION WIDTH 13.7 % (11.5-14.0); SEGMENTED NEUTROPHILS % (AUTO) 65.5 % (42-78); WHITE BLOOD COUNT 11.3 10^3/uL (4.0-10.5)
[2016-12-02 15:02] LABS: ANION GAP 14 (5-19); BLOOD UREA NITROGEN 14 mg/dL (7-20); CALCIUM 9.9 mg/dL (8.4-10.2); CARBON DIOXIDE 21 mmol/L (22-30); CHLORIDE 107 mmol/L (98-107); GLUCOSE 78 mg/dL (75-110); POTASSIUM 4.2 mmol/L (3.6-5.0); SODIUM 141.8 mmol/L (137-145)
--- NOTE | 2016-12-02 15:10 | RADIOLOGY REPORT (SQ) ---
EXAM DESCRIPTION: CHEST PA/LAT COMPLETED DATE/TIME: 12/02/2016 2:58 pm REASON FOR STUDY: cough COMPARISON: None. EXAM PARAMETERS: NUMBER OF VIEWS: two views TECHNIQUE: Digital Frontal and Lateral radiographic views of the chest acquired. RADIATION DOSE: NA LIMITATIONS: none FINDINGS: LUNGS AND PLEURA: No opacities, masses or pneumothorax. No pleural effusion. MEDIASTINUM AND HILAR STRUCTURES: No masses or contour abnormalities. HEART AND VASCULAR STRUCTURES: Heart normal size. No evidence for failure. BONES: No acute findings. HARDWARE: None in the chest. OTHER: No other significant finding. IMPRESSION: NO SIGNIFICANT RADIOGRAPHIC FINDING IN THE CHEST. TECHNICAL DOCUMENTATION: JOB ID: [id number] [email or web address] All Rights Reserved
== END 2016-12-02 15:38 | disposition home or self-care (01) ==
LOC: ER 13:22
DX: J20.9 Acute bronchitis, unspecified (principal); R53.1 Weakness; G89.29 Other chronic pain; M25.562 Pain in left knee; R10.9 Unspecified abdominal pain; R55 Syncope and collapse; F17.200 Nicotine dependence, unspecified, uncomplicated; Z87.442 Personal history of urinary calculi
CPT/HCPCS: 36415; 71020; 80048; 85025; 99284

== ENCOUNTER 2018-05-05 17:30 | Emergency (ER) | payer SELFPAY ==
[2018-05-05 17:45] VITALS: BP 140/94
[2018-05-05] MEDS ORDERED: NORMAL SALINE 1000 ML 1,000 ML IV ONE (19:20)
[2018-05-05] MEDS ORDERED: KETOROLAC TROMETHAMINE INJ/PF 30 MG/1 ML SDV IV ONE (19:27)
--- NOTE | 2018-05-05 19:28 | ER Document Report ---
ED GI/ - General Chief Complaint: Abdominal Pain Stated Complaint: ABDOMINAL PAIN Time Seen by Provider: 05/05/18 19:06 Mode of Arrival: Ambulatory Information source: Patient Notes: Patient presents complaining of lower abdominal pain for the past 3 weeks with urinary frequency. Patient does report occasional penile discharge. Patient states that he has had constipation symptoms as well. Patient states he does take MiraLAX but denies any improvement of the constipation symptoms. Patient states that he does have a chronic abdominal pain for the past 18 months and has been seen multiple times by his primary doctor as well as GI doctor for this pain in the past. 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 Patient denies any nausea vomiting or diarrhea. Patient reports normal appetite. Patient denies any fever. Patient denies any concerns about sexually transmitted infection. TRAVEL OUTSIDE OF THE [place] IN LAST 30 DAYS: No - HPI Patient complains to provider of: Abdominal pain, Dysuria. No: Flank pain, Testicular pain, Vomiting Onset: Other - 3 weeks Timing/Duration: Waxing and waning Quality of pain: Achy, Sharp Pain Level: 4 Location: LLQ, Pelvis Sexual history: Active Associated symptoms: Constipation, Urinary frequency. denies: Diarrhea, Dizzy, Fever, Loss of appetite, Nausea, Urinary hesitancy, Vomiting Exacerbated by: Denies Relieved by: Denies Similar symptoms previously: Yes Recently seen / treated by doctor: No - Related Data Allergies/Adverse Reactions: No Known Allergies Allergy (Verified 12/02/16 13:30) Past Medical History - General Information source: Patient - Social History Smoking Status: Current Every Day Smoker Smoking Education Provided: Yes Frequency of alcohol use: Occasional Drug Abuse: None Occupation: None Family History: None Pulmonary Medical History: Reports: Hx Pneumonia, Hx Sleep Apnea Neurological Medical History: Reports: Hx Seizures Renal/ Medical History: Reports: Hx Kidney Stones. Denies: Hx Peritoneal Dialysis GI Medical History: Reports: Hx Ulcer, Hx Colonoscopy, Hx Endoscopy, Other - Gunn's esophagus Musculoskeletal Medical History: Reports Hx Musculoskeletal Trauma Psychiatric Medical History: Reports: Hx Attention Deficit Hyperactivity Disorder, Hx Bipolar Disorder Past Surgical History: Reports: Hx Orthopedic Surgery - Meninscal repair in 2007 Dr. Marsh - Immunizations Immunizations up to date: No Hx Diphtheria, Pertussis, Tetanus Vaccination: Yes Review of Systems - Review of Systems Constitutional: No symptoms reported. denies: Fever, Recent illness EENT: No symptoms reported Cardiovascular: No symptoms reported. denies: Chest pain Respiratory: No symptoms reported. denies: Cough, Short of breath Gastrointestinal: Abdominal pain. denies: Diarrhea, Nausea, Vomiting Genitourinary: Burning, Frequency, Flank pain - Left flank. denies: Hematuria Male Genitourinary: No symptoms reported Musculoskeletal: Back pain Skin: No symptoms reported Hematologic/Lymphatic: No symptoms reported Neurological/Psychological: No symptoms reported. denies: Weakness, Headaches Physical Exam - Vital signs Vitals: Temp Pulse Resp BP Pulse Ox 98.2 F 90 18 140/94 H 97 05/05/18 17:42 05/05/18 17:42 05/05/18 17:42 05/05/18 17:42 05/05/18 17:42 - General General appearance: Appears well, Alert In distress: None - HEENT Head: Normocephalic, Atraumatic Eyes: Normal Conjunctiva: Normal Nasal: Normal Mouth/Lips: Normal Mucous membranes: Normal Pharynx: Normal Neck: Normal, Supple. No: Lymphadenopathy - Respiratory Respiratory status: No respiratory distress Chest status: Nontender Breath sounds: Normal. No: Rales, Rhonchi, Stridor, Wheezing Chest palpation: Normal - Cardiovascular Rhythm: Regular Heart sounds: S1 appreciated, S2 appreciated Murmur: No - Abdominal Inspection: Obese Distension: No distension Bowel sounds: Normal Tenderness: Tender - LLQ pain Organomegaly: No organomegaly - Genitourinary Inspection: Normal Tenderness: Nontender. No: Testicle tender, Epididymis tender Cremasteric reflex: Normal Scrotum: Normal. No: Swelling, Redness Notes: RN as standby - Back Back: CVA tenderness - left - Extremities General upper extremity: Normal inspection, Normal ROM General lower extremity: Normal inspection, Normal ROM - Neurological Neuro grossly intact: Yes Cognition: Normal [place] Coma Scale Eye Opening: Spontaneous Cole Coma Scale Verbal: Oriented [place] Coma Scale Motor: Obeys Commands [place] Coma Scale Total: 15 - Psychological Associated symptoms: Normal affect, Normal mood - Skin Skin Temperature: Warm Skin Moisture: Dry Skin Color: Normal Course - Re-evaluation Re-evalutation: 05/05/18 21:50 Patient presents with a flareup of his chronic low abdominal pain that he has had off and on past 18 months. Patient has seen his primary doctor as well as a GI specialist for this issue and has had upper and lower colonoscopies. Patient does report urinary frequency dysuria and penile discharge. No concern for any obstructive uropathy or pyelonephritis. Patient does report a history of constipation and does have increased stool burden with no signs of obstruction at this time on x-ray. Patient presents with abdominal pain without signs of peritonitis or other life-threatening or serious etiology. Patient appears stable for discharge and has been instructed to return immediately if the symptoms worsen in any way for reevaluation. The patient has been instructed to return if the symptoms worsen or change in any way. - Vital Signs Vital signs: Temp Pulse Resp BP Pulse Ox 98.2 F 90 18 140/94 H 97 05/05/18 17:42 05/05/18 17:42 05/05/18 17:42 05/05/18 17:42 05/05/18 17:42 - Laboratory Result Diagrams: 05/05/18 19:48 05/05/18 19:48 Laboratory results interpreted by me: 05/05/18 05/05/18 19:48 20:36 WBC 11.6 H RDW 14.2 H Urine Blood MODERATE H Ur Leukocyte Esterase MODERATE H Labs- Entire Visit 05/05/18 05/05/18 05/05/18 19:48 19:48 20:36 WBC 11.6 H RBC 5.51 Hgb 16.4 Hct 47.8 MCV 87 MCH 29.8 MCHC 34.4 RDW 14.2 H Plt Count 223 Seg Neutrophils % 60.2 Lymphocytes % 28.7 Monocytes % 7.6 Eosinophils % 2.4 Basophils % 1.1 Absolute Neutrophils 7.0 Absolute Lymphocytes 3.3 Absolute Monocytes 0.9 Absolute Eosinophils 0.3 Absolute Basophils 0.1 Sodium 143.0 Potassium 4.2 Chloride 106 Carbon Dioxide 23 Anion Gap 14 BUN 18 Creatinine 0.66 Est GFR ( Amer) > 60 Est GFR (Non-Af Amer) > 60 Glucose 77 Calcium 9.5 Total Bilirubin 0.5 Direct Bilirubin 0.2 Neonat Total Bilirubin Not Reportable Neonat Direct Bilirubin Not Reportable Neonat Indirect Bili Not Reportable AST 28 ALT 32 Alkaline Phosphatase 79 Total Protein 7.5 Albumin 4.6 Lipase 117.1 Urine Color YELLOW Urine Appearance CLEAR Urine pH 6.0 Ur Specific [place] 1.027 Urine Protein NEGATIVE Urine Glucose (UA) NEGATIVE Urine Ketones NEGATIVE Urine Blood MODERATE H Urine Nitrite NEGATIVE Urine Bilirubin NEGATIVE Urine Urobilinogen NEGATIVE Ur Leukocyte Esterase MODERATE H Urine WBC (Auto) 2 Urine RBC (Auto) 13 Urine Mucus (Auto) OCC Urine Ascorbic Acid NEGATIVE - Diagnostic Test Radiology reviewed: Reports reviewed Discharge - Discharge Clinical Impression: Chronic abdominal pain, Penile discharge UTI (urinary tract infection) Qualifiers: Urinary tract infection type: site unspecified Hematuria presence: with hematuria Qualified Code(s): N39.0 - Urinary tract infection, site not specified Condition: Stable Disposition: HOME, SELF-CARE Instructions: Abdominal Pain ([facility]), Azithromycin ([facility]), Doxycycline ([facility]), Rocephin ([facility]), Urinary Tract Infection ([facility]) Additional Instructions: Return immediately for any new or worsening symptoms Followup with your primary care provider, call tomorrow to make a followup appointment Follow-up with a GI specialist for further evaluation of your chronic abdominal pain Cultures are pending, we will call if you need any different treatment Prescriptions: Doxycycline Hyclate 100 mg PO BID #20 capsule Naproxen [Naprosyn 250 Nmg Tablet] 1 tab PO BID #14 tablet Polyethylene Glycol 3350 [Miralax] 17 gm PO DAILY #119 powder Forms: Smoking Cessation Education Referrals: [facility] [Provider Group] - Follow up as needed JENNIFER SMITH MD [ACTIVE STAFF] - Follow up as needed RIMMA CARRANZA MD [NO LOCAL MD] - Follow up as needed SRAVAN CERDA MD [ACTIVE STAFF] - Follow up as needed
[2018-05-05 19:55] LABS: ABSOLUTE BASOPHILS # (AUTO) 0.1 10^3/uL (0.0-0.2); ABSOLUTE EOSINOPHILS # (AUTO) 0.3 10^3/uL (0.0-0.6); ABSOLUTE LYMPHOCYTES (AUTO) 3.3 10^3/uL (0.5-4.7); ABSOLUTE MONOCYTES (AUTO) 0.9 10^3/uL (0.1-1.4); BASOPHILS % (AUTO) 1.1 % (0-2); EOSINOPHILS % (AUTO) 2.4 % (0-6); HEMATOCRIT 47.8 % (37.9-51.0); HEMOGLOBIN 16.4 g/dL (13.5-17.0); LYMPHOCYTES % (AUTO) 28.7 % (13-45); MEAN CORPUSCULAR HEMOGLOBIN 29.8 pg (27.0-33.4); MEAN CORPUSCULAR HGB CONC 34.4 g/dL (32.0-36.0); MEAN CORPUSCULAR VOLUME 87 fl (80-97); MONOCYTES % (AUTO) 7.6 % (3-13); PLATELET COUNT 223 10^3/uL (150-450); RED BLOOD COUNT 5.51 10^6/uL (4.35-5.55); RED CELL DISTRIBUTION WIDTH 14.2 % (11.5-14.0); SEGMENTED NEUTROPHILS % (AUTO) 60.2 % (42-78); TOTAL CELLS COUNTED % (AUTO) 100 %; WHITE BLOOD COUNT 11.6 10^3/uL (4.0-10.5)
[2018-05-05 20:11] LABS: ALANINE AMINOTRANSFERASE 32 U/L (21-72); ALBUMIN 4.6 g/dL (3.5-5.0); ALKALINE PHOSPHATASE 79 U/L (38-126); ANION GAP 14 (5-19); ASPARTATE AMINO TRANSFERASE 28 U/L (17-59); BILIRUBIN,DIRECT 0.2 mg/dL (0.0-0.4); BILIRUBIN,TOTAL 0.5 mg/dL (0.2-1.3); BLOOD UREA NITROGEN 18 mg/dL (7-20); CALCIUM 9.5 mg/dL (8.4-10.2); CARBON DIOXIDE 23 mmol/L (22-30); CHLORIDE 106 mmol/L (98-107); GLUCOSE 77 mg/dL (75-110); LIPASE 117.1 U/L (23-300); POTASSIUM 4.2 mmol/L (3.6-5.0); TOTAL PROTEIN 7.5 g/dL (6.3-8.2)
--- NOTE | 2018-05-05 20:48 | RADIOLOGY REPORT (SQ) ---
EXAM DESCRIPTION: ACUTE ABDOMEN SERIES COMPLETED DATE/TIME: 05/05/2018 8:06 pm REASON FOR STUDY: L side abd pain, c/o constipation COMPARISON: None. NUMBER OF VIEWS: Two views TECHNIQUE: Frontal chest and upright abdomen radiographic images acquired. LIMITATIONS: Limited field of view excludes the pelvic soft tissues. FINDINGS: CHEST: Lungs clear of infiltrates. FREE AIR: None. No abnormal gas collections. BOWEL GAS PATTERN: Nonobstructive pattern. No dilated loops or air fluid levels. CALCIFICATIONS: No suspicious calcifications. HARDWARE: None in the abdomen. SOFT TISSUES: No gross mass or suggestion of organomegaly. BONES: No acute fracture. No worrisome bone lesions. OTHER: No other significant finding. IMPRESSION: Limited examination. No evidence of high-grade bowel obstruction. TECHNICAL DOCUMENTATION: JOB ID: [id number] [employer]- All Rights Reserved Reading location - IP/workstation name: [email or web address]
[2018-05-05 20:58] LABS: APPEARANCE,URINE CLEAR; BILIRUBIN,URINE NEGATIVE (NEGATIVE); COLOR,URINE YELLOW; GLUCOSE, URINE NEGATIVE (NEGATIVE); KETONES,URINE NEGATIVE (NEGATIVE); LEUKOCYTE ESTERASE,URINE MODERATE (NEGATIVE); NITRITE,URINE NEGATIVE (NEGATIVE); PROTEIN,URINE NEGATIVE (NEGATIVE); URINE SPECIFIC GRAVITY 1.027; UROBILINOGEN,URINE NEGATIVE mg/dL (<2.0)
--- NOTE | 2018-05-05 21:01 | RADIOLOGY REPORT (SQ) ---
EXAM DESCRIPTION: U/S RETROPERITON (RENAL/AORTA) COMPLETED DATE/TIME: 05/05/2018 8:33 pm REASON FOR STUDY: L flank pain, L abd pain, hx kid stones COMPARISON: None. TECHNIQUE: Dynamic and static grayscale images acquired of the kidneys and bladder and recorded on P ACS. Additional selected color Doppler and spectral images recorded. LIMITATIONS: None. FINDINGS: RIGHT KIDNEY: Normal size. Normal echogenicity. No solid or suspicious masses. No hydronep hrosis. No calcifications. LEFT KIDNEY: Normal size. Normal echogenicity. No solid or suspicious masses. No hydronephrosis. No calcifications. BLADDER: No masses. OTHER FINDINGS: No other significant finding. IMPRESSION: No evidence of hydronephrosis or obstructive uropathy. TECHNICAL DOCUMENTATION: JOB ID: [id number] [employer]- All Rights Reserved Reading location - IP/workstation name: [email or web address]
[2018-05-05] MEDS ORDERED: CEFTRIAXONE INJ 1000 MG VIAL IM ONE (21:35)
[2018-05-05] MEDS ORDERED: DOXYCYCLINE HYCLATE 100 MG TABLET PO ONE (21:36)
[2018-05-05] MEDS ORDERED: AZITHROMYCIN 250 MG TABLET PO ONE (21:36)
[2018-05-05] MEDS ORDERED: LIDOCAINE 1% INJ-PF (10 MG/ML) 30 ML SDV INJ ONE (21:36)
[2018-05-05 22:18] LABS: CHLAM PCR NOT DETECTED (NOT DETECT); GON PCR NOT DETECTED (NOT DETECT)
== END 2018-05-05 22:07 | disposition home or self-care (01) ==
LOC: ER 17:30
DX: N39.0 Urinary tract infection, site not specified (principal); K59.00 Constipation, unspecified; R10.2 Pelvic and perineal pain; R10.32 Left lower quadrant pain; G89.29 Other chronic pain; R36.9 Urethral discharge, unspecified; Z79.899 Other long term (current) drug therapy; F17.200 Nicotine dependence, unspecified, uncomplicated; M54.9 Dorsalgia, unspecified
CPT/HCPCS: 99285; 96372; 96361; 96374; 36415; 87086; 83690; 85025; 80053; 81001; 87491; 87591; 74022; 76770; J3490; J1885; J0696; J7030

== ENCOUNTER 2018-05-20 00:39 | Emergency (ER) | payer MEDICAID, MEDICARE ==
[2018-05-20 00:50] VITALS: BP 154/103
[2018-05-20] MEDS ORDERED: KETOROLAC TROMETHAMINE 60 MG/2 ML SDV IM ONE (01:21)
--- NOTE | 2018-05-20 01:27 | ER Document Report ---
HPI - HPI Patient complains to provider of: Lower back pain Time Seen by Provider: 05/20/18 01:12 Pain Level: 4 Context: Patient is a 27-year-old male that comes emergency department for chief complaint of lower back pain. He states he frequently has lower back pain but today it started hurting worse. He states that he had an episode where he felt like he pulled something and he had sharp pain that felt like he was replaying in his lower back. He denies any impact, fall, numbness, incontinence, inability to urinate, fever. He denies history of IV drug abuse. He denies any surgeries. Past medical history of epilepsy, on Depakote. Past Medical History - General Information source: Patient - Social History Smoking Status: Never Smoker Frequency of alcohol use: None Drug Abuse: None Lives with: Family Family History: None Pulmonary Medical History: Reports: Hx Pneumonia, Hx Sleep Apnea Neurological Medical History: Reports: Hx Seizures Renal/ Medical History: Reports: Hx Kidney Stones. Denies: Hx Peritoneal Dialysis GI Medical History: Reports: Hx Ulcer, Hx Colonoscopy, Hx Endoscopy Musculoskeletal Medical History: Reports Hx Musculoskeletal Trauma Psychiatric Medical History: Reports: Hx Attention Deficit Hyperactivity Disorder, Hx Bipolar Disorder Past Surgical History: Reports: Hx Orthopedic Surgery - Meninscal repair in 2007 Dr. Marsh - Immunizations Immunizations up to date: No Hx Diphtheria, Pertussis, Tetanus Vaccination: Yes Vertical Provider Document - CONSTITUTIONAL General Appearance: WD/WN, No Apparent Distress - INFECTION CONTROL TRAVEL OUTSIDE OF THE [place] IN LAST 30 DAYS: No - HEENT HEENT: Atraumatic, Normal ENT Exam, Normocephalic - NECK Neck: Normal Inspection - RESPIRATORY Respiratory: Breath Sounds Normal, No Respiratory Distress - CARDIOVASCULAR Cardiovascular: Regular Rate, Regular Rhythm - GI/ABDOMEN Gastrointestinal: Abdomen Soft, Abdomen Non-Tender - BACK Back: negative: Normal Inspection - Mild bilateral paralumbar musculature tenderness, worse on the left. Negative straight leg raise test. Negative axial loading test. No midline tenderness, no saddle anesthesia, no signs of trauma. Normal upper and lower extremity range of motion, normal strength, normal distal neurovascular exam. - MUSCULOSKELETAL/EXTREMETIES Musculoskeletal/Extremeties: MAEW, FROM, Non-Tender - NEURO Level of Consciousness: Awake, Alert, Appropriate - DERM Integumentary: Warm, Dry, No Rash Course - Re-evaluation Re-evalutation: Back exam is actually quite benign. Patient changes position, ambulates, performs range of motion without difficulty. He does have some tenderness in the paraspinal lumbar musculature. No midline tenderness, no saddle anesthesia , denies recreational drugs, no fever. Patient is not tachycardic on my examination. I discussed this with patient in detail. After discussion decision was made to proceed with Toradol here, anti-inflammatories and Robaxin at home. Discussed follow-up with primary care and return precautions in detail. Patient states satisfaction and agreement with plan. - Vital Signs Vital signs: Temp Pulse Resp BP Pulse Ox 97.5 F 104 H 16 154/103 H 100 05/20/18 00:45 05/20/18 00:45 05/20/18 00:45 05/20/18 00:45 05/20/18 00:45 Discharge - Discharge Clinical Impression: Lower back pain Qualifiers: Chronicity: acute Back pain laterality: bilateral Sciatica presence: without sciatica Qualified Code(s): M54.5 - Low back pain Condition: Stable Disposition: HOME, SELF-CARE Additional Instructions: Your back examination shows strain and spasm of the paraspinal lumbar muscles, no other abnormalities noted at this time. Take muscle relaxer as prescribed, take anti-inflammatory as prescribed, apply heat to the area several times a day, rest. Avoid lifting/twisting until symptoms resolve. Follow-up with primary care. Return if you worsen including fever, severe worsening pain, numbness, inability to urinate, incontinence, or any other concerning or worsening symptoms. Prescriptions: Methocarbamol [Robaxin 750 mg Tablet] 750 mg PO Q6 #20 tablet Naproxen 500 mg PO BID PRN #20 tablet PRN Reason: Forms: Elevated Blood Pressure Referrals: JESSICA WALLACE MD [Primary Care Provider] - Follow up as needed
== END 2018-05-20 01:50 | disposition home or self-care (01) ==
LOC: ER 00:39
DX: M54.5 Low back pain (principal)
CPT/HCPCS: 99283; 96372; J1885

== ENCOUNTER 2018-07-13 13:00 | Emergency (ER) | payer MEDICAID, MEDICARE ==
--- NOTE | 2018-07-13 14:20 | ER Document Report ---
ED Medical Screen (RME) - General Chief Complaint: Abdominal Pain Stated Complaint: ABDOMINAL PAIN Time Seen by Provider: 07/13/18 14:16 Primary Care Provider: JESSICA WALLACE MD [Primary Care Provider] - Follow up as needed Mode of Arrival: Ambulatory Information source: Patient Notes: 27-year-old male presents to ED for complaint of right lower quadrant pain that started when he was asleep. He states that the pain is just gotten worse whenever he sits walks or moves. He states he did not eating any breakfast has not had any nausea or vomiting and is afebrile. He does have rebound tenderness to the right lower quadrant. He states his last food was about 1 PM. He is alert oriented respirations regular and unlabored walks with a bit of a limp due to the pain in his right lower quadrant. Winces with any pressure to the right lower quadrant or with pressure to the right foot. Past medical history of seizures last seizure was 2 years ago only surgery is torn meniscus repair. I have greeted and performed a rapid initial assessment of this patient. A comprehensive ED assessment and evaluation of the patient, analysis of test results and completion of medical decision making process will be conducted by an additional ED providers. TRAVEL OUTSIDE OF THE [place] IN LAST 30 DAYS: No - Related Data Allergies/Adverse Reactions: No Known Allergies Allergy (Verified 07/13/18 13:00) Past Medical History - Social History Chew tobacco use (# tins/day): No Frequency of alcohol use: Occasional Drug Abuse: None Pulmonary Medical History: Reports: Hx Pneumonia, Hx Sleep Apnea Neurological Medical History: Reports: Hx Seizures Renal/ Medical History: Reports: Hx Kidney Stones. Denies: Hx Peritoneal Dialysis GI Medical History: Reports: Hx Ulcer, Hx Colonoscopy, Hx Endoscopy Musculoskeltal Medical History: Reports Hx Musculoskeletal Trauma Psychiatric Medical History: Reports: Hx Attention Deficit Hyperactivity Disorder, Hx Bipolar Disorder Past Surgical History: Reports: Hx Orthopedic Surgery - Meninscal repair in 2007 Dr. Marsh - Immunizations Immunizations up to date: No Hx Diphtheria, Pertussis, Tetanus Vaccination: Yes Physical Exam - Vital signs Vitals: Temp Pulse Resp BP Pulse Ox 98.6 F 86 15 136/84 H 97 07/13/18 13:26 07/13/18 13:26 07/13/18 13:26 07/13/18 13:26 07/13/18 13:26 Course - Vital Signs Vital signs: Temp Pulse Resp BP Pulse Ox 98.6 F 86 15 136/84 H 97 07/13/18 13:26 07/13/18 13:26 07/13/18 13:26 07/13/18 13:26 07/13/18 13:26 Doctor's Discharge - Discharge Referrals: JESSICA WALLACE MD [Primary Care Provider] - Follow up as needed
[2018-07-13 15:45] LABS: ABSOLUTE BASOPHILS # (AUTO) 0.1 10^3/uL (0.0-0.2); ABSOLUTE EOSINOPHILS # (AUTO) 0.2 10^3/uL (0.0-0.6); ABSOLUTE LYMPHOCYTES (AUTO) 2.8 10^3/uL (0.5-4.7); ABSOLUTE MONOCYTES (AUTO) 0.7 10^3/uL (0.1-1.4); ABSOLUTE NEUT (AUTO) 6.4 10^3/uL (1.7-8.2); BASOPHILS % (AUTO) 0.7 % (0-2); EOSINOPHILS % (AUTO) 1.8 % (0-6); HEMATOCRIT 51.4 % (37.9-51.0); HEMOGLOBIN 17.7 g/dL (13.5-17.0); LYMPHOCYTES % (AUTO) 27.3 % (13-45); MEAN CORPUSCULAR HEMOGLOBIN 29.8 pg (27.0-33.4); MEAN CORPUSCULAR HGB CONC 34.4 g/dL (32.0-36.0); MEAN CORPUSCULAR VOLUME 87 fl (80-97); MONOCYTES % (AUTO) 6.9 % (3-13); PLATELET COUNT 232 10^3/uL (150-450); RED BLOOD COUNT 5.93 10^6/uL (4.35-5.55); RED CELL DISTRIBUTION WIDTH 14.2 % (11.5-14.0); SEGMENTED NEUTROPHILS % (AUTO) 63.3 % (42-78); TOTAL CELLS COUNTED % (AUTO) 100 %; WHITE BLOOD COUNT 10.1 10^3/uL (4.0-10.5)
[2018-07-13 15:53] LABS: APPEARANCE,URINE CLEAR; BILIRUBIN,URINE NEGATIVE (NEGATIVE); COLOR,URINE YELLOW; GLUCOSE, URINE NEGATIVE (NEGATIVE); KETONES,URINE NEGATIVE (NEGATIVE); LEUKOCYTE ESTERASE,URINE TRACE (NEGATIVE); NITRITE,URINE NEGATIVE (NEGATIVE); PROTEIN,URINE NEGATIVE (NEGATIVE); URINE SPECIFIC GRAVITY 1.009; UROBILINOGEN,URINE NEGATIVE mg/dL (<2.0)
[2018-07-13 16:00] LABS: ALANINE AMINOTRANSFERASE 35 U/L (21-72); ALBUMIN 4.9 g/dL (3.5-5.0); ALKALINE PHOSPHATASE 82 U/L (38-126); ANION GAP 11 (5-19); ASPARTATE AMINO TRANSFERASE 26 U/L (17-59); BILIRUBIN,DIRECT 0.2 mg/dL (0.0-0.4); BILIRUBIN,TOTAL 0.7 mg/dL (0.2-1.3); BLOOD UREA NITROGEN 10 mg/dL (7-20); CALCIUM 9.6 mg/dL (8.4-10.2); CARBON DIOXIDE 24 mmol/L (22-30); CHLORIDE 106 mmol/L (98-107); GLUCOSE 75 mg/dL (75-110); POTASSIUM 3.9 mmol/L (3.6-5.0); SODIUM 140.8 mmol/L (137-145); TOTAL PROTEIN 7.7 g/dL (6.3-8.2)
--- NOTE | 2018-07-13 17:22 | ER Document Report ---
ED General - General Chief Complaint: Abdominal Pain Stated Complaint: ABDOMINAL PAIN Time Seen by Provider: 07/13/18 14:16 Primary Care Provider: JESSICA WALLACE MD [Primary Care Provider] - Follow up as needed Mode of Arrival: Ambulatory Information source: Patient, [facility] Records Notes: 19-year-old male with history of previous kidney stones presents with sudden onset of right flank pain that started this morning. Patient describes the pain as constant, stabbing and without radiation. He reports that his last stone was approximately 2 years prior to arrival. Patient denies any right lower quadrant pain, dysuria, hematuria. He does admit to some associated nausea without vomiting. TRAVEL OUTSIDE OF THE [place] IN LAST 30 DAYS: No - HPI Onset: This morning Onset/Duration: Sudden, Constant Quality of pain: Stabbing Severity: Moderate Associated symptoms: Nausea. denies: Chest pain, Diarrhea, Fever, Vomiting, Shortness of breath, Weakness Exacerbated by: Movement Relieved by: Denies Similar symptoms previously: Yes Recently seen / treated by doctor: No - Related Data Allergies/Adverse Reactions: No Known Allergies Allergy (Verified 07/13/18 13:00) Past Medical History - General Information source: Patient - Social History Smoking Status: Current Every Day Smoker Cigarette use (# per day): Yes - 5 Chew tobacco use (# tins/day): No Smoking Education Provided: Yes - Smoking cessation counseling was provided for 4 minutes at the bedside Frequency of alcohol use: Occasional Drug Abuse: None Lives with: Family Family History: None Patient has suicidal ideation: No Patient has homicidal ideation: No Pulmonary Medical History: Reports: Hx Pneumonia, Hx Sleep Apnea Neurological Medical History: Reports: Hx Seizures Renal/ Medical History: Reports: Hx Kidney Stones. Denies: Hx Peritoneal Dialysis GI Medical History: Reports: Hx Ulcer, Hx Colonoscopy, Hx Endoscopy Musculoskeletal Medical History: Reports Hx Musculoskeletal Trauma Psychiatric Medical History: Reports: Hx Attention Deficit Hyperactivity Disorder, Hx Bipolar Disorder Past Surgical History: Reports: Hx Orthopedic Surgery - Meninscal repair in 2007 Dr. Marsh - Immunizations Immunizations up to date: No Hx Diphtheria, Pertussis, Tetanus Vaccination: Yes Review of Systems - Review of Systems Notes: REVIEW OF SYSTEMS: CONSTITUTIONAL : Denies fever, chills, or sweats. Denies recent illness. Denies weight loss, recent hospitalizations. EENT: Denies visual changes, eye pain. Denies sore throat, oral lesions, difficulty swallowing. CARDIOVASCULAR: Denies chest pain. Denies palpitations. Denies lower extremity edema. RESPIRATORY: Denies cough. Denies shortness of breath, wheezing. GASTROINTESTINAL: Denies abdominal pain or distention. Denies vomiting, or diarrhea. Denies blood in vomitus, stools, or per rectum. Denies black, tarry stools. Denies constipation. GENITOURINARY: Denies difficulty urinating, painful urination, frequency, blood in urine, testicular pain or penile discharge. MUSCULOSKELETAL: Denies neck pain or stiffness. Denies joint pain or swelling. SKIN: Denies rash, lesions or sores. HEMATOLOGIC : Denies easy bruising or bleeding. LYMPHATIC: Denies swollen glands. NEUROLOGICAL: Denies confusion or altered mental status. Denies loss of consciousness. Denies dizziness or lightheadedness. Denies headache. Denies weakness or paralysis. Denies problems difficulty with ambulation, slurred speech. Denies sensory loss, numbness, or tingling. Denies seizures. PSYCHIATRIC: Denies anxiety or stress. Denies depression, suicidal ideation, or Physical Exam - Vital signs Vitals: Temp Pulse Resp BP Pulse Ox 98.6 F 86 15 136/84 H 97 07/13/18 13:26 07/13/18 13:26 07/13/18 13:26 07/13/18 13:26 07/13/18 13:26 - Notes Notes: PHYSICAL EXAMINATION: GENERAL: Well-appearing, well-nourished and in no acute distress. HEAD: Atraumatic, normocephalic. EYES: Pupils equal round and reactive to light, extraocular movements intact, sclera anicteric, conjunctiva are normal. ENT: Nares patent, oropharynx clear without exudates. Moist mucous membranes. NECK: Normal range of motion, supple without lymphadenopathy LUNGS: Breath sounds clear to auscultation bilaterally and equal. No wheezes rales or rhonchi. HEART: Regular rate and rhythm without murmurs ABDOMEN: Soft, nontender, nondistended abdomen. No guarding, no rebound. No masses appreciated. Right CVA tenderness Musculoskeletal: Normal range of motion, no pitting or edema. No cyanosis. NEUROLOGICAL: Cranial nerves grossly intact. Normal speech, normal gait. Normal sensory, motor exams PSYCH: Normal mood, normal affect. SKIN: Warm, Dry, normal turgor, no rashes or lesions noted. Course - Re-evaluation Re-evalutation: 07/14/18 01:53 Laboratory 07/13/18 07/13/18 07/13/18 14:35 15:10 15:10 WBC 10.1 RBC 5.93 H Hgb 17.7 H Hct 51.4 H MCV 87 MCH 29.8 MCHC 34.4 RDW 14.2 H Plt Count 232 Seg Neutrophils % 63.3 Lymphocytes % 27.3 Monocytes % 6.9 Eosinophils % 1.8 Basophils % 0.7 Absolute Neutrophils 6.4 Absolute Lymphocytes 2.8 Absolute Monocytes 0.7 Absolute Eosinophils 0.2 Absolute Basophils 0.1 Sodium 140.8 Potassium 3.9 Chloride 106 Carbon Dioxide 24 Anion Gap 11 BUN 10 Creatinine 0.64 Est GFR ( Amer) > 60 Est GFR (Non-Af Amer) > 60 Glucose 75 Calcium 9.6 Total Bilirubin 0.7 Direct Bilirubin 0.2 Neonat Total Bilirubin Not Reportable Neonat Direct Bilirubin Not Reportable Neonat Indirect Bili Not Reportable AST 26 ALT 35 Alkaline Phosphatase 82 Total Protein 7.7 Albumin 4.9 Urine Color YELLOW Urine Appearance CLEAR Urine pH 6.0 Ur Specific Malin 1.009 Urine Protein NEGATIVE Urine Glucose (UA) NEGATIVE Urine Ketones NEGATIVE Urine Blood MODERATE H Urine Nitrite NEGATIVE Urine Bilirubin NEGATIVE Urine Urobilinogen NEGATIVE Ur Leukocyte Esterase TRACE H Urine WBC (Auto) 0 Urine RBC (Auto) 2 Urine Mucus (Auto) RARE Urine Ascorbic Acid NEGATIVE Temp Pulse Resp BP Pulse Ox 98.6 F 88 15 136/80 H 100 07/13/18 17:40 07/13/18 17:40 07/13/18 13:26 07/13/18 17:40 07/13/18 17:40 07/14/18 01:53 27-year-old male with history of previous kidney stones presents with sudden onset of right flank pain that occurred this morning. Patient has not had associated nausea without vomiting. He denies any fever, chills, abdominal pain, dysuria, hematuria. Vital signs reviewed and within normal limits upon arrival. Patient does not appear toxic or dehydrated. He is in no acute distress. Upon my exam patient states that pain has improved without intervention. CBC is without leukocytosis or anemia. CMP within normal limits. Urinalysis has a moderate blood. Patient given Toradol, Zofran. Bedside ultrasound was performed and showed no evidence of hydronephrosis. Presents with findings consistent with acute nephrolithiasis, renal colic. Urinalysis does show hematuria. Laboratory otherwise unremarkable. Pain was able to be controlled here in the emergency department. Patient is tolerating oral intake. Clinical history is not consistent with an acute abdominal aneurysm or dissection, [place], or pulmonary embolus. Urinalysis does not show findings consistent with an infected stone. Vitals have remained within normal limits. Patient will be discharged with recommendations to follow-up with urology, pain medications, and return precautions. They are in agreement with this plan and verbalized indications return to emergency department. - Vital Signs Vital signs: Temp Pulse Resp BP Pulse Ox 98.6 F 88 15 136/80 H 100 07/13/18 17:40 07/13/18 17:40 07/13/18 13:26 07/13/18 17:40 07/13/18 17:40 - Laboratory Result Diagrams: 07/13/18 15:10 07/13/18 15:10 Laboratory results interpreted by me: 07/13/18 07/13/18 14:35 15:10 RBC 5.93 H Hgb 17.7 H Hct 51.4 H RDW 14.2 H Urine Blood MODERATE H Ur Leukocyte Esterase TRACE H Discharge - Discharge Clinical Impression: Right flank pain, History of kidney stones, Renal colic on right side Hematuria Qualifiers: Hematuria type: unspecified type Qualified Code(s): R31.9 - Hematuria, unspecified Condition: Good Disposition: HOME, SELF-CARE Instructions: Flank Pain ([facility]), Hematuria ([facility]), Kidney Stone ([facility]) Additional Instructions: Your symptoms should improve over the course of the next one week. If you continue to have pain for greater than one week or your pain is not controlled with the pain medications that you have been sent home with you need to return to the emergency department. Please also return if you develop fever, persistent vomiting, or any other symptoms that are concerning to you. You should take ibuprofen 600 mg every 6 hours and use the oral morphine as prescribed only for pain not controlled by ibuprofen. You are also been sent home with a medication called Flomax to help pass the stone. You've been given Zofran to assist with nausea. Please follow-up with urology in the next 2-3 days. Prescriptions: Ketorolac Tromethamine [Toradol 10 mg Tablet] 10 mg PO Q6HP PRN #20 tablet PRN Reason: Ondansetron [Zofran Odt 4 mg Tablet] 1 - 2 tab PO Q4H PRN #15 tab.rapdis PRN Reason: For Nausea/Vomiting Tamsulosin HCl [Flomax 0.4 mg Cap.sr] 0.4 mg PO DAILY #7 cap.sr.24h Referrals: JESSICA WALLACE MD [Primary Care Provider] - Follow up as needed
[2018-07-13] MEDS ORDERED: TAMSULOSIN HCL 0.4 MG CAP.SR.24H PO ONE (17:23)
[2018-07-13] MEDS ORDERED: KETOROLAC TROMETHAMINE 60 MG/2 ML SDV IM ONE (17:23)
[2018-07-13 17:56] VITALS: BP 136/80
== END 2018-07-13 17:55 | disposition home or self-care (01) ==
LOC: ER 13:00
DX: N23 Unspecified renal colic (principal); R31.9 Hematuria, unspecified; R30.0 Dysuria; R11.0 Nausea; F17.210 Nicotine dependence, cigarettes, uncomplicated
CPT/HCPCS: 99406; 99284; 96372; 36415; 85025; 80053; 81001; J1885; A9270